=== PATIENT | female | born 1940 | race Caucasian/White ===

== ENCOUNTER → 2019-08-08 | Outpatient (CLI) | payer MEDICARE, OTHER ==
[~2019-08-08] MED LIST: ALTACE10 MG PO; CLARITIN10 MG; CLONIDINE0.1 PO; HYDROCHLOROTHIA25 M2; HYDROCHLOROTHIA25 M2 PO; MEDROLDOSEPACK; OMEPRAZOLE40 MG; PEPCID20 MG PO
--- NOTE | 2019-08-08 17:32 | CARDNUC ---
[place] [address] CARDIAC NUCLEAR IMAGING REPORT Name: MICHAEL OROPEZA Room: [facility]#: [id number] Admission: 08/08/19 Attend Phys: Mert Seo, Discharge: Date of : 38 Date of Service: 08/08/19 1730 Report #: [id number] THIS REPORT FOR: cc: Kathy Bridges MD, Stephanie MD Liston, Michael J. MD [facility] ~ APPROVED REPORT Imaging Protocol: Stress Tc-99m/Rest Tc-99m 1 day Study performed: 08/08/2019 09:15:00 Indication: Chest pain Patient Location: Out-Patient Stress Tech: Annamaria Farias Stress Nurse: Lissy Du RN Ht: 5 ft 4 in Wt: 157 lbs BSA: 1.76 m2 BMI: 26.94 Medical History Medical History: COPD, Stroke/TIA, HTN, Hyperlipidemia Medications: lopressor, ramipril Allergies: multiple, see list Cardiac Risk Factors: Age, HTN, Hyperlipidemia, FHX of CAD Exercise History: Indeterminate Meds Held (24 hrs): lopressor Resting Data Rest SPECT myocardial perfusion imaging was performed in supine position 30 minutes following the intravenous injection of 9.8 mCi of Tc-99m Sestamibi. Time of rest injection: :45 The images were gated to evaluate regional wall motion and calculate left ventricular ejection fraction. Administration Route: IV Administration Site: Right AC Pharmacologic Stress Pharmacologic stress test was performed by injecting Regadenoson 0.4 mg IV push over 10-15 seconds immediately followed by the intravenous injection of 31.1 mCi of Tc-99m Sestamibi. Time of stress injection: 11:30 Administration Route: IV Administration Site: [place] [address] CARDIAC NUCLEAR IMAGING REPORT Name: MICHAEL OROPEZA Room: [facility]#: [id number] Admission: 08/08/19 Attend Phys: Mert Seo, Discharge: Date of : 38 Date of Service: 08/08/19 1730 Report #: [id number] Heart Rate at time of stress injection: 125 bpm. Gated Stress SPECT was performed 60 minutes after stress injection. The images were gated to evaluate regional wall motion and calculate left ventricular ejection fraction. Stress Test Details Stress Test: Pharmacologic stress testing performed using 0.4 mg of regadenoson per 5 mL given IV over 10 seconds. Reason for pharmacologic stress test: physical limitation. HR Max Heart Rate (APMHR): 141 bpm Resting HR: 71 bpm Target HR (85% APMHR): 119 bpm Max HR Achieved: 125 bpm % of APMHR: 88 Recovery HR: 68 bpm BP Resting BP: 184/78 mmHg Max BP: 202/82 mmHg Recovery BP: 131/62 mmHg ECG Resting ECG: Sinus Rhythm, nonspecific ST-T abnormalities Stress ECG: Sinus tachycardia, nonspecific ST-T abnormalities Arrhythmia: VPC's Recovery ECG: Sinus Rhythm, nonspecific ST-T abnormalities Recovery Arrhythmia: VPC's Clinical Reason for Termination: Completed protocol The patient had an episode of feeling hot after receiving Lexiscan but no other significant cardiac symptoms are noted. Nurse Comments pt became very pale and co of being hot after recieving lexiscan. fan turned on and pt placed in reclining position.IVP caffeine given. [facility] registry np was called to come see the pt. no significant ekg changes were noted by this nurse and agreed per LFnp. finger stick 107 and partial nih done which was 0. pt placed in sitting positon and now co of being very cold. warm blankets and hot tea provided. pt condition improved and pt was taken to radiology per . [place] [address] CARDIAC NUCLEAR IMAGING REPORT Name: MICHAEL OROPEZA Room: [facility]#: [id number] Admission: 08/08/19 Attend Phys: Mert Seo, Discharge: Date of : 38 Date of Service: 08/08/19 1730 Report #: [id number] Baseline twelve-lead EKG shows sinus rhythm with ST segment depression isolated to lead V6. EKGs obtained during and post Lexiscan infusion show sinus rhythm and sinus tachycardia with ST segment depression of approximately 2 mm in the inferolateral leads. There are occasional unifocal premature ventricular complexes. Study Quality Study: Fair Artifact: Mild Breast artifact Study Data At rest, the left ventricular ejection fraction was 62%.. Post stress, the left ventricular ejection was 60%.. TID = 1.07. Perfusion Perfusion images show a small in size mild intensity reversible defect in the mid to apical anterior wall. Cannot rule out breast attenuation artifact. Wall Motion Normal left ventricular wall motion. Nuclear Conclusion ECG Findings: equivocal Clinical Findings: equivocal Nuclear Findings: positive for ischemia Exercise Capacity: not assessed Left Ventricular Function: normal Perfusion studies suggest the possibility of mild ischemia involving the mid to apical anterior wall. Cannot be certain this is not breast attenuation artifact. Global LV systolic function appears normal. Appears to be at least a moderate risk study. Clinical correlation recommended. <Conclusion> Baseline twelve-lead EKG shows sinus rhythm with ST segment depression isolated to lead V6. EKGs obtained during and post Lexiscan infusion show sinus rhythm and sinus tachycardia with ST segment depression of approximately 2 mm in the inferolateral leads. There are occasional unifocal premature ventricular complexes. <ELECTRONICALLY SIGNED> By: Mert Seo MD, FACC 08/08/19 1730 173 29 Mert Seo MD, FACC /INF
== END ==
LOC: M.NUC 11-25 08:43 → M.CRD 09:00 → M.NUC 09:17
DX: E11.9 Type 2 diabetes mellitus without complications (principal); R07.89 Other chest pain; J44.9 Chronic obstructive pulmonary disease, unspecified; I10 Essential (primary) hypertension; E78.5 Hyperlipidemia, unspecified; Z68.41 Body mass index [BMI] 40.0-44.9, adult; Z86.73 Personal history of transient ischemic attack (TIA), and cerebral infarction without residual deficits

== ENCOUNTER 2019-12-11 20:17 | Inpatient (IN) | payer MEDICARE, OTHER ==
[~2019-12-11] VITALS: Ht 160 cm; Wt 78.0 kg
[2019-12-11 20:22] VITALS: BP 238/108
[2019-12-11 20:46] LABS: CREATININE 1.1 mg/dL (0.6-1.3); POTASSIUM 4.6 mmol/L (3.5-5.1)
[2019-12-11 20:51] LABS: PROTIME 10.8 Seconds (9.20-11.50)
[2019-12-11 20:56] LABS: ALBUMIN 3.9 g/dL (3.4-5.0); MAGNESIUM 2.1 mg/dL (1.8-2.4); TOTAL BILIRUBIN 0.2 mg/dL (<0.1-1.0); TOTAL PROTEIN 7.5 g/dL (6.4-8.2)
[2019-12-11 21:05] LABS: ABSOLUTE BASOPHILS 0.1 thou/uL (0.0-0.2); ABSOLUTE EOSINOPHILS 0.2 thou/uL (0.0-0.7); ABSOLUTE LYMPHOCYTES 1.6 thou/uL (0.8-5.3); ABSOLUTE MONOCYTES 1.1 thou/uL (0.0-1.2); ABSOLUTE NEUTROPHILS 6.7 thou/uL (1.6-8.1); BASOPHILS 1.4 %; EOSINOPHILS 2.1 %; HEMATOCRIT 34.4 % (37.0-47.0); HEMOGLOBIN 11.3 gm/dL (12.0-15.0); LYMPHOCYTES 16.9 %; MCH 24.4 pg (26.0-34.0); MCHC 32.7 g/dL (28.0-37.0); MCV 74.7 fL (80.0-100.0); MPV 9.2 fl. (7.2-11.1); NUCLEATED RBCS 0 /100WBC; PLATELET COUNT* 369 thou/uL (150-400); POLYS 68.6 %; RBC 4.61 mil/uL (4.20-5.00); RDW-CV 17.6 % (10.5-14.5); WBC 9.7 thou/uL (4.0-11.0)
[2019-12-11] MEDS ORDERED: TOPROL XL50 MG (21:24)
[2019-12-11] MEDS ORDERED: ADVAIR 250-501 EACH INH (21:24)
[2019-12-11] MEDS ORDERED: SPIRIVA18 MCG INH (21:25)
[2019-12-11] MEDS ORDERED: ASA81BEC PO (21:25)
[2019-12-11] MEDS ORDERED: XOPENEX0.31 MG/3 INH (21:25)
[2019-12-11] MEDS ORDERED: IRON18 M1 PO (21:25)
[2019-12-11 21:28] LABS: URINE BILIRUBIN NEGATIVE (Negative); URINE BLOOD NEGATIVE (Negative); URINE CLARITY CLEAR; URINE COLOR YELLOW; URINE GLUCOSE-RANDOM NEGATIVE (Negative); URINE KETONES NEGATIVE (Negative); URINE LEUKOCYTES-REFLEX TRACE (Negative); URINE NITRITE-REFLEX NEGATIVE (Negative); URINE PROTEIN NEGATIVE (Negative); URINE UROBILINOGEN 0.2 E.U./dl (0.2-1.0)
[2019-12-11 21:35] LABS: CASTS None Seen /LPF (None Seen); CRYSTALS None Seen /LPF (None Seen); MUCUS None Seen strn/LPF (None Seen); SQUAMOUS 0-3 Few /LPF (0-3); URINE RBC None Seen /HPF (0-2); URINE WBC-REFLEX 0-5 Rare /HPF (0-5)
[2019-12-11 21:36] LABS: BACTERIA-REFLEX None Seen /HPF (None Seen)
[2019-12-12 02:00] VITALS: BP 146/57
[2019-12-12 06:00] VITALS: BP 122/57
--- NOTE | 2019-12-12 10:18 | EKG ---
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 : 1940 Requested By: Lupe Jovel Order Number: [id number] MD: Hemal Brown Measurements Intervals Transfer Rate: 74 P: -31 AZ: 163 QRS: -23 QRSD: 103 T: 26 QT: 407 QTc: 452 Interpretive Statements Sinus rhythm left ventricular hypertrophy with repolarization changes Anterior Q waves, possibly due to LVH Baseline wander in lead(s) II,aVF Compared to ECG 02/23/2016 06:15:47 Ventricular premature complex(es) no longer present Electronically Signed On 12-12-2019 10:18:27 CDT by Hemal Brown [email or web address] <ELECTRONICALLY SIGNED> By: Hemal Brown MD, [facility] 12/12/19 1018 21 21 Hemal Brown MD, [facility] /EPI
[2019-12-12 10:24] LABS: URINE BILIRUBIN NEGATIVE (Negative); URINE BLOOD NEGATIVE (Negative); URINE CLARITY CLEAR; URINE COLOR YELLOW; URINE GLUCOSE-RANDOM NEGATIVE (Negative); URINE KETONES NEGATIVE (Negative); URINE LEUKOCYTES-REFLEX TRACE (Negative); URINE NITRITE-REFLEX NEGATIVE (Negative); URINE PROTEIN NEGATIVE (Negative); URINE UROBILINOGEN 0.2 E.U./dl (0.2-1.0)
[2019-12-12 10:29] LABS: SQUAMOUS 0-3 Few /LPF (0-3); URINE RBC None Seen /HPF (0-2); URINE WBC-REFLEX 0-5 Rare /HPF (0-5)
[2019-12-12 10:30] LABS: CASTS None Seen /LPF (None Seen); CRYSTALS None Seen /LPF (None Seen); MUCUS None Seen strn/LPF (None Seen)
[2019-12-12 14:44] VITALS: BP 110/42
[2019-12-12 14:45] VITALS: BP 122/51
--- NOTE | 2019-12-12 16:07 | CON ---
[address] [address] CONSULTATION Name: MICHAEL OROPEZA Room: [address] IN ..#: [id number] Admission: 12/12/19 Attend Phys: Delbert Zuniga MD Discharge: Date of : 38 Report #: [id number] THIS REPORT FOR: //name// cc: Kathy Bridges MD, Stephanie MD ~ THIS REPORT FOR: //name// CC: Delbert Bridges MD DATE OF SERVICE: 12/12/2019 CARDIOLOGY CONSULTATION HISTORY OF PRESENT ILLNESS: The patient is an 79-year-old single white female who I was asked to see in the Emergency Room today after she complained of chest pressure. The patient has an extensive and complicated past medical history. She has a long history of PVCs. However, previous heart catheterization in 2008 showed normal coronary arteries. She stays fairly active. She has a long history of hypertension that has been difficult to control. She was actually seen this summer with chest pressure. She underwent a nuclear stress test in August that showed breast attenuation artifact, ejection fraction 62%. However, ischemia cannot be excluded. She was placed on Imdur. Recently, she has felt fatigued and having no energy. She denied any fever, cough, bleeding. She has had no vomiting or diarrhea. She actually went to the Emergency Room in [place] 3 days ago, was evaluated and sent home. However, because of the chest pressure, she finally came to the Emergency Room here at [place] last night and was admitted. She denied the pressure being related to food or coughing. She has had no trauma to her chest. There is no radiation to her arms. She has felt somewhat lightheaded. She denied any shortness of breath, palpitations. She notes, in the Emergency Room in [place] 3 days ago, she was told that she had an irregular heartbeat, but she denied any palpitations. PAST MEDICAL HISTORY: Significant for hysterectomy, cataract extraction, hypertension, hyperlipidemia. She apparently had a stroke 30 years ago affecting her vision. She does have a history of carotid artery disease with previous carotid Doppler in July of this year showing a 50-69% stenosis, which was unchanged from 2017. MEDICATIONS: Include hydralazine, Imdur, metoprolol, and ramipril. ALLERGIES: SHE HAS A PREVIOUS INTOLERANCE TO ZOCOR, WHICH MADE HER MUSCLES ACHE, KEFLEX, NIFEDIPINE, OMEPRAZOLE, AND PENICILLIN. FAMILY HISTORY: [place] [address] CONSULTATION Name: MICHAEL OROPEZA Room: [address] IN [facility].#: [id number] Admission: 12/12/19 Attend Phys: Delbert Zuniga MD Discharge: Date of : 38 Report #: [id number] SOCIAL HISTORY: Single, spends her [place] down in [place]. No smoking or alcohol abuse. REVIEW OF SYSTEMS: She has had no history of liver disease. She has a history of asthma, uses inhaler. No history of kidney disease, cancer, psychiatric illness, chronic skin condition. PHYSICAL EXAMINATION: GENERAL: Revealed an elderly female, who appeared in no distress. VITAL SIGNS: She had a blood pressure initially of 200/90, pulse is 60. She is afebrile. HEENT: She was anicteric. Conjunctivae are pink. NECK: Supple. CHEST: Clear to auscultation. CARDIOVASCULAR: Regular rate and rhythm, no murmur. ABDOMEN: Soft. EXTREMITIES: Had no edema. Dorsalis pedis pulse 2+ on the left. The right posterior tibial pulse is 2+. SKIN: Warm and dry. NEUROLOGIC: Nonfocal. LYMPH: No adenopathy. IMAGING: She had an ECG on admission that showed a sinus rhythm, nonspecific ST and T-wave change. She had a portable chest x-ray in the Emergency Room last night that showed normal heart size and clear lung vergara. A CT scan of the abdomen was performed that showed no acute abnormality. She actually had a CT scan of the head here at [place] in 2015 that showed no acute abnormality. LABORATORY WORK: Last night, BUN 23, creatinine 1.1, potassium 4.6. Liver function studies were normal. Troponins all 0.06. Previous LDL was 144. TSH last night 1.1. White blood cell count 9.7, hemoglobin 11.3, hematocrit 34.4. Urinalysis last night, negative for protein, trace leukocytes, no bacteria. IMPRESSION AND RECOMMENDATIONS: 1. Chest pressure. No evidence of acute myocardial infarction. I would not recommend repeat stress testing. I would treat the patient medically. If the patient remains stable, I would consider discharging the patient tomorrow. 2. Hypertension. The patient is on hydralazine, beta-gi, DELICIA inhibitor. The patient was on clonidine in the past. 3. Hyperlipidemia. The patient could not tolerate statin drugs. 4. Carotid stenosis. No recent transient ischemic attacks. I would consider aspirin 81 mg a day. [address] [address] CONSULTATION Name: MICHAEL OROPEZA Room: [address]#: [id number] Admission: 12/12/19 Attend Phys: eDlbert Zuniga MD Discharge: Date of : 38 Report #: [id number] 5. History of asthma. 6. Premature ventricular contractions. The patient is on a beta-gi. <ELECTRONICALLY SIGNED> By: Hemal Brown MD, FACC 12/12/19 1607 0917 [id number] Brown MD, FACC /nt
[2019-12-12] MEDS ORDERED: HYDRALAZINE 2525 M1 PO (18:53)
[2019-12-12 20:00] VITALS: BP 122/45
[2019-12-12 23:45] VITALS: BP 131/52
[2019-12-13 05:00] VITALS: BP 185/96
[2019-12-13 06:12] VITALS: BP 194/63
[2019-12-13 08:00] VITALS: BP 193/58
[2019-12-13] MEDS ORDERED: METOPROLOL SUCC25 M1 PO (10:11)
[2019-12-13 12:29] VITALS: BP 193/58
[2019-12-13 13:53] VITALS: BP 193/58
== END 2019-12-13 13:18 | disposition home or self-care (01) | DRG 309 ==
LOC: M.ERS 20:17 → M.TBA-ER 21:53 → M.2W 12-12 09:04
PROVIDERS: Emergency Medicine; Nurse Practitioner; ADMIT Internal Medicine; ATTEND Internal Medicine
DX: I48.91 Unspecified atrial fibrillation (principal); D68.59 Other primary thrombophilia; J45.909 Unspecified asthma, uncomplicated; I10 Essential (primary) hypertension; R53.83 Other fatigue; E78.5 Hyperlipidemia, unspecified; I49.3 Ventricular premature depolarization; I25.119 Atherosclerotic heart disease of native coronary artery with unspecified angina pectoris; Z20.828 Contact with and (suspected) exposure to other viral communicable diseases; Z90.710 Acquired absence of both cervix and uterus; Z98.42 Cataract extraction status, left eye; Z98.41 Cataract extraction status, right eye; Z79.82 Long term (current) use of aspirin; Z79.899 Other long term (current) drug therapy; Z88.1 Allergy status to other antibiotic agents; Z88.8 Allergy status to other drugs, medicaments and biological substances; Z88.0 Allergy status to penicillin; Z91.048 Other nonmedicinal substance allergy status; Z87.11 Personal history of peptic ulcer disease